=== PATIENT | male | born 1965 | race Caucasian/White ===

== ENCOUNTER 2019-04-18 14:34 | Emergency (ER) | payer MEDICAID ==
[~2019-04-18] VITALS: Ht 177.8 cm; Wt 75.0 kg
[2019-04-18] MEDS ORDERED: LURA40TA PO (15:34)
[2019-04-18] MEDS ORDERED: DIVA-59 PO (15:34)
[2019-04-18] MEDS ORDERED: ATOR-2 PO (15:34)
[2019-04-18 15:40] LABS: BASOPHILS # (AUTO) 0.03 x10^3/uL (0-0.1); BASOPHILS % (AUTO) 0 % (0-1); EOSINOPHILS # (AUTO) 0.33 x10^3/uL (0-0.4); EOSINOPHILS % (AUTO) 5 % (1-7); LYMPHOCYTES # (AUTO) 2.89 x10^3/uL (1-3.4); LYMPHOCYTES % (AUTO) 40 % (22-44); MD NO; MEAN CORPUSCULAR HEMOGLOBIN 32.2 pg (27.5-34.5); MEAN CORPUSCULAR HGB CONC 33.9 g/dL (33.2-36.2); MEAN CORPUSCULAR VOLUME 95.1 fL (81-97); MEAN PLATELET VOLUME 7.9 fL (7.4-10.4); MONOCYTES # (AUTO) 0.52 x10^3/uL (0.2-0.8); MONOCYTES % (AUTO) 7 % (2-9); NEUTROPHILS # (AUTO) 3.48 x10^3/uL (1.8-6.8); NEUTROPHILS % (AUTO) 48 % (42-75); PLATELET COUNT 348 x10^3/uL (130-400); RED BLOOD COUNT 4.72 x10^6/uL (4.38-5.82); RED CELL DISTRIBUTION WIDTH 13.9 % (9.4-14.8)
[2019-04-18 15:50] LABS: ALBUMIN 3.8 g/dL (3.4-5.0); ANION GAP 7 mmol/L (5-15); CALCIUM 8.5 mg/dL (8.5-10.1); CHLORIDE 108 mmol/L (98-107); CREATININE 0.85 mg/dL (0.7-1.3)
[2019-04-18 15:54] LABS: SALICYLATE LEVEL < 1.7 mg/dL (2.8-20.0)
--- NOTE | 2019-04-18 16:06 | NUR ---
TASK RN: PT RESTING ON YNES. EMMANUEL. SITTER AT BEDSIDE. ROOM REMAINS SECURE.
[2019-04-18 16:29] LABS: AMPHETAMINE SCREEN, URINE Negative (Negative); BARBITURATE SCREEN, URINE Negative (Negative); BENZODIAZEPINE SCREEN, URINE Negative (Negative); CANNABINOID SCREEN, URINE Negative (Negative); COCAINE SCREEN, URINE Negative (Negative); METHADONE SCREEN, URINE Negative (Negative); OPIATE SCREEN, URINE Negative (Negative)
[2019-04-18] MEDS ORDERED: HYDROXYZINE PAMOATE 25MG CAP PO PRN (17:00)
[2019-04-18] MEDS ORDERED: PLEASE ENTER HEIGHT AND WEIGHT MC SCH (17:00)
[2019-04-18] MEDS ORDERED: ARIPIPRAZOLE 10 MG TABLET PO ONE (17:00)
[2019-04-18] MEDS ORDERED: ARIPIPRAZOLE 5 MG TABLET ONE (17:08)
--- NOTE | 2019-04-18 17:12 | NUR ---
SANJIV MEAL TRAY ORDERED.
--- NOTE | 2019-04-18 17:29 | NUR ---
PSYCH YVONNE GELLER INTERVIEWED PT. PLAN IS TO D/C PT BUT PT STATES THAT HE HAS NOWHERE TO GO. PT WAS BROUGHT TO THE ED BY THE BY [facility]. I AM ATTEMPTING TO CONTACT THEM FOR RTN.
--- NOTE | 2019-04-18 18:09 | NUR ---
SPOKE WITH SERGEI AT [facility]. PT WAS S/C FROM PROGRAM PER PTS REQUEST. SERGEI STATED THAT HE CAN NOT REAPPLY FOR THE PROGRAM FOR 30 DAYS. I CONTACTED [facility] AND VERIFIED THAT THEY DO HAVE A BED AVAILABLE FOR [place] BUT HE CAN NOT CHECK IN UNTIL 8PM MARVA. PT IS AGREEABLE TO THIS PLAN. I UPDATED PSYCH YVONNE GELLER. YVONNE WILL BE IN TO DISCUSS D/C PLAN WITH PT.
[2019-04-18 18:29] VITALS: BP 112/54
--- NOTE | 2019-04-18 18:29 | NUR ---
Patient/Caregiver given discharge instructions and they have confirmed that they understand the instructions. Patient ambulatory with steady gait.
--- NOTE | 2019-04-18 19:02 | NUR ---
REPORT FROM JEANIE FLANNERY
--- NOTE | 2019-04-18 19:03 | NUR ---
BELONGINGS BAGS X 3 RTD TO PT. YVONNE, PSYCH PHARMACIST PER DIEM AT BEDSIDE. PT AWARE OF PLAN FOR D/C WE WILL PROVIDE TASI VOUCHER FOR PT TO RECORD STREET LONG TERM. THE LONG TERM IS AWARE OF HIM AND IS HOLDING A BED IN HIS NAME.
--- NOTE | 2019-04-18 19:09 | NUR ---
SBAR RPT TO PRUDENCIO GLEZ
[2019-04-19] MEDS ORDERED: ARIPIPRAZOLE 5 MG TABLET PO SCH (09:00)
== END 2019-04-18 18:31 | disposition home or self-care (01) ==
LOC: ED 18:25
DX: F33.9 Major depressive disorder, recurrent, unspecified (principal); S00.81XA Abrasion of other part of head, initial encounter; F17.200 Nicotine dependence, unspecified, uncomplicated; Z72.89 Other problems related to lifestyle; X58.XXXA Exposure to other specified factors, initial encounter; Y93.89 Activity, other specified; Y92.89 Other specified places as the place of occurrence of the external cause; Y99.8 Other external cause status
CPT/HCPCS: 36415; 80048; 80307; 82040; 85025; 99284

== ENCOUNTER 2019-04-28 16:40 | Emergency (ER) | payer MEDICAID ==
[~2019-04-28] VITALS: Ht 180.3 cm; Wt 75.7 kg
[~2019-04-28 16:40] MED LIST: ATOR-2 PO; DIVA-59 PO; LURA40TA PO
[2019-04-28 17:01] VITALS: BP 118/77
--- NOTE | 2019-04-28 17:32 | NUR ---
Pt moved from chair by T1 where this RN was able to directly visualize pt until room available. Moved to 39 with safety precautions IP.
[2019-04-28] MEDS ORDERED: hydrOXyzine 10MG TABLET PO ONE (18:00)
[2019-04-28] MEDS ORDERED: ARIPIPRAZOLE 5 MG TABLET ONE (18:06)
[2019-04-29] MEDS ORDERED: ARIPIPRAZOLE 5 MG TABLET PO SCH (09:00)
== END 2019-04-28 18:41 | disposition home or self-care (01) ==
LOC: ED 18:19
DX: F41.1 Generalized anxiety disorder (principal); F15.90 Other stimulant use, unspecified, uncomplicated
CPT/HCPCS: 99283

== ENCOUNTER 2019-05-23 14:03 | Emergency (ER) | payer MEDICAID ==
[~2019-05-23] VITALS: Ht 180.3 cm; Wt 76.2 kg
[2019-05-23 14:23] VITALS: BP 127/86
--- NOTE | 2019-05-23 14:59 | NUR ---
Patient given discharge instructions and they have confirmed that they understand the instructions. Patient ambulatory with steady gait.
== END 2019-05-23 15:00 | disposition home or self-care (01) ==
LOC: ED 14:52
DX: F41.9 Anxiety disorder, unspecified (principal); F17.200 Nicotine dependence, unspecified, uncomplicated; Z76.0 Encounter for issue of repeat prescription
CPT/HCPCS: 99283